=== PATIENT | male | born 1990 | race American Indian/Alaskan Native ===

== ENCOUNTER 2021-10-09 16:34 | Emergency (ER) | payer MEDICAID ==
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
[2021-10-09 19:08] VITALS: BP 109/46
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
== END 2021-10-09 20:35 | disposition home or self-care (01) ==
LOC: ED 16:34
DX: R07.81 Pleurodynia (principal); M79.641 Pain in right hand; M25.562 Pain in left knee; M54.50 Low back pain, unspecified; F17.200 Nicotine dependence, unspecified, uncomplicated; Z91.010 Allergy to peanuts; V89.2XXA Person injured in unspecified motor-vehicle accident, traffic, initial encounter; Y93.89 Activity, other specified; Y92.89 Other specified places as the place of occurrence of the external cause; Y99.8 Other external cause status
CPT/HCPCS: 71111; 99283

== ENCOUNTER 2022-04-10 07:53 | Emergency (ER) | payer MEDICAID ==
--- NOTE | 2022-04-10 10:52 | Ultrasound Report ---
Scrotal Ultrasound HISTORY: right testicular swelling and pain. TECHNIQUE: Grayscale and color imaging performed. COMPARISON: None FINDINGS: Right testicle measures 4.3 x 2.0 x 3.0 cm with normal appearance and preserved blood flow. There is a large simple hydrocele. The epididymis is normal. Left testicle measures 4.5 x 2.4 x 3.4 cm with normal appearance and preserved blood flow. A large si mple hydrocele is also present on the left. The epididymis is normal. IMPRESSION: Large bilateral simple hydroceles. Signer Name: Ric Lares MD Signed: 04/10/2022 10:47 AM Workstation Name: [id number]
--- NOTE | 2022-04-10 15:45 | Emergency Department Report ---
ED Male HPI - General Chief complaint: Urogenital-Male Stated complaint: REFERRED TO GET ULTRASOUND Source: patient Mode of arrival: Ambulatory Limitations: No Limitations - History of Present Illness Initial comments: 31-year-old male presents to the ED for ultrasound. He has a history of bipolar disorder. patient has testicle swelling x6 months. Patient was informed by [facility] to have a ultrasound done. He states that he went to [facility] last month and had ultrasound but left before the reading because of the wait time. He states that he came today to have the ultrasound done because he was wanted to have kids. Denies any pain, penile discharge, or increase in size in the last 6-month. He denies any abdominal pain ,fever ,or chills or nausea or vomiting. He is alert and oriented x3. No acute distress noted. No ill appearance noted. MD Complaint: testicle swelling Onset/Timin -: month(s) Severity scale (0 -10): 0 - Related Data Previous Rx's Medication Instructions Recorded Last Taken Type Naproxen 375 mg PO BID PRN #14 tablet 10/09/21 Unknown Rx methOCARBAMOL [Robaxin TAB] 500 mg PO BID PRN #14 tab 10/09/21 Unknown Rx Allergies Allergy/AdvReac Type Severity Reaction Status Date / Time peanut AdvReac Anaphylaxis Verified 10/09/21 17:06 ED Review of Systems ROS: Stated complaint: REFERRED TO GET ULTRASOUND Other details as noted in HPI ED Past Medical Hx - Past Medical History Previous Medical History?: Yes Hx Psychiatric Treatment: Yes (Depression) Additional medical history: Patient had originally denied any history of psychiatric disorder to the triage nurse. 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 - Surgical History Past Surgical History?: No - Social History Smoking Status: Current Every Day Smoker Substance Use Type: Alcohol - Medications Home Medications: Home Medications Medication Instructions Recorded Confirmed Last Taken Type Naproxen 375 mg PO BID PRN #14 tablet 10/09/21 Unknown Rx methOCARBAMOL [Robaxin TAB] 500 mg PO BID PRN #14 tab 10/09/21 Unknown Rx ED Physical Exam - General Limitations: No Limitations ED Course Vital Signs 04/10/22 08:16 Temperature 98.5 F Pulse Rate 73 Respiratory 20 Rate Blood Pressure 130/77 [Right] O2 Sat by Pulse 99 Oximetry ED Medical Decision Making - Medical Decision Making 31-year-old male presents to the ED for ultrasound. He has a history of bipolar disorder. Patient has testicle swelling x6 months. Patient was informed by [facility] clinic to have a ultrasound done. He states that he went to [facility] last month and had ultrasound but left before the reading because of the wait time. He states that he came today to have the ultrasound done because he was wanted to have kids. Denies any pain, penile discharge, or increase in size in the last 6-month. He denies any abdominal pain ,fever ,or chills or nausea or vomiting. He is alert and oriented x3. No acute distress noted. No ill appearance noted. Physical examination patient has edema noted to the scrotum area. Patient is to follow-up with urology. Ultrasound of the testicle shows hydrocele to the left testicle. Rechecked the patient is resting quietly quietly and comfortable and feeling better. I discussed the results of diagnostic study, my clinical impression and the plan for further treatment with the patient. Patient agrees with plan and discharge at this present time. All question addressed. I have given the patient instruction regarding a diagnosis ,expectation ,follow- up and return precaution. I explained to the patient that emergent condition may arise and to return to the ED for new worsen and any new persisting condition. I have explained the importance of following up with the primary care physician or referral physician listed below has instructed. The patient verbalized understanding of discharge instruction. Critical care attestation.: If time is entered above; I have spent that time in minutes in the direct care of this critically ill patient, excluding procedure time. ED Disposition Clinical Impression: Hydrocele in adult Disposition: 01 HOME / SELF CARE / HOMELESS Is pt being admited?: No Does the pt Need Aspirin: No Condition: Stable Instructions: Hydrocele, Adult, Testicular Self-Exam, [id number], Testicular Self-Exam Additional Instructions: Follow-up with urology Return to the ED for any worsening symptoms or any new increase in pain Referrals: RAMÓN COLE MD [Staff Physician] - 3-5 Days Forms: Work/School Release Form(ED) Time of Disposition: 15:53
[2022-04-10 16:41] VITALS: BP 132/77
== END 2022-04-10 16:44 | disposition home or self-care (01) ==
LOC: ED 07:53
DX: N50.89 Other specified disorders of the male genital organs (principal); F32.A Depression, unspecified; F17.200 Nicotine dependence, unspecified, uncomplicated; Z91.010 Allergy to peanuts; Z79.899 Other long term (current) drug therapy
CPT/HCPCS: 76870; 93975; 99283